=== PATIENT | male | born 1955 | race Caucasian/White ===

== ENCOUNTER 2021-01-23 16:45 | Observation (INO) | payer BC ==
[2021-01-23] MEDS ORDERED: Metoclopramide 10 MG/2 ML SDV IVPUSH ONE (17:03)
[2021-01-23] MEDS: Sodium Chloride 0.9% 10 ML Syringe FLUSH PRN ×2 (17:08→22:13)
[2021-01-23] MEDS ORDERED: Lactated Ringers 1,000 ML IV SCH (17:15)
[2021-01-23 17:22] LABS: CHLORIDE,CL 98 mmol/L (98-107); SODIUM,NA 133 mmol/L (136-145)
[2021-01-23] MEDS ORDERED: Iopamidol 612 MG/ML 100 ML Bottle IVPUSH STA (17:37)
[2021-01-23] MEDS ORDERED: Iopamidol 612 MG/ML 100 ML Bottle ONE (17:47)
[2021-01-23] MEDS ORDERED: Sodium Chloride 0.9% 1,000 ML IV ONE (18:23)
--- NOTE | 2021-01-23 19:10 | EDM.PDOC ---
ED HPI GENERAL MEDICAL PROBLEM - General Chief Complaint: Gastrointestinal Problem Stated Complaint: N&V Time Seen by Provider: 01/23/21 16:47 Source of Information: Reports: Patient History Limitations: Reports: No Limitations - History of Present Illness INITIAL COMMENTS - FREE TEXT/NARRATIVE: Pt. presents to ER with complaint of 2 day history of unable to hold down fluids. Pt. states that he had prostatectomy on 01/16. He still have a chery catheter in place. This is supposed to be removed tomorrow. Pt. states that he had a BM today and yesterday. He states that he was able to hold down fluids prior to yesterday. Pt. denies any abdominal pain. No fever or chills. Denies any groin pain. He denies any chest pain or shortness of breath. Pt. has not noticed any blood in his stools. He denies any flank or low back pain. Surgery was performed on 01/16/[address] Manzo at [facility]. 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) - Related Data Allergies Allergy/AdvReac Type Severity Reaction Status Date / Time No Known Allergies Allergy Verified 06/27/14 11:54 Home Meds: Home Meds amLODIPine [Norvasc] 10 mg PO DAILY 06/27/14 [History] Labetalol HCl [Labetalol] 400 mg PO BID 07/04/14 [History] Aspirin [Aspirin EC] 81 mg PO DAILY 01/23/21 [History] Bacitracin [Bacitracin Oint] 1 dose TOP BID PRN 01/23/21 [History] Enoxaparin Sodium [Lovenox] 40 mg SUBCUT DAILY 01/23/21 [History] Furosemide 40 mg PO DAILY 01/23/21 [History] Levothyroxine [Synthroid] 112 mcg PO DAILY 01/23/21 [History] Oxybutynin Chloride [Oxybutynin Chloride ER] 10 mg PO DAILY PRN 01/23/21 [History] Sennosides/Docusate Sodium [Senna-Docusate Sodium Tablet] 2 tab PO DAILY PRN 01/23/21 [History] Sildenafil Citrate [Viagra] 100 mg PO ASDIRECTED 01/23/21 [History] Simethicone [Gas-X Ultra Strength] 1 tab PO ONETIME 01/23/21 [History] atorvaSTATin Calcium [Atorvastatin Calcium] 20 mg PO BEDTIME 01/23/21 [History] calcitrioL [Calcitriol] 1 cap PO Q48H 01/23/21 [History] dimenhyDRINATE [Dramamine] 50 mg PO ONETIME 01/23/21 [History] oxyCODONE 5 mg PO Q6HR PRN 01/23/21 [History] Past Medical History HEENT History: Reports: Impaired Vision Cardiovascular History: Reports: High Cholesterol, Hypertension Endocrine/Metabolic History: Reports: Hypothyroidism Oncologic (Cancer) History: Reports: Prostate - Past Surgical History HEENT Surgical History: Reports: Oral Surgery Male Surgical History: Reports: Prostatectomy, Other (See Below) Other Male Surgeries/Procedures: Two lymph nodes removed with prostate Musculoskeletal Surgical History: Reports: Shoulder Surgery Other Musculoskeletal Surgeries/Procedures:: right shoulder surgery in pt late ' Social & Family History - Tobacco Use Tobacco Use Status *Q: Never Tobacco User - Caffeine Use Caffeine Use: Reports: None - Living Situation & Occupation Living situation: Reports: , with Family Occupation: Employed ED ROS GENERAL - Review of Systems Review Of Systems: See Below Constitutional: Reports: Decreased Appetite. Denies: Fever, Chills, Malaise, Weakness, Fatigue, Diaphoresis HEENT: Reports: No Symptoms Respiratory: Reports: No Symptoms Cardiovascular: Reports: No Symptoms Endocrine: Reports: No Symptoms GI/Abdominal: Reports: Abdominal Pain (diffuse cramping), Anorexia, Flatus, Nausea, Vomiting. Denies: Black Stool, Bloody Stool, Diarrhea, Distension, Hematemesis, Hematochezia, Melena : Reports: No Symptoms Musculoskeletal: Reports: No Symptoms Skin: Reports: No Symptoms Neurological: Reports: No Symptoms Psychiatric: Reports: No Symptoms Hematologic/Lymphatic: Reports: No Symptoms Immunologic: Reports: No Symptoms ED EXAM, GENERAL - Physical Exam Exam: See Below Exam Limited By: No Limitations General Appearance: Alert, WD/WN, No Apparent Distress Nose: Normal Inspection, Normal Mucosa Throat/Mouth: Normal Inspection, Normal Lips, Normal Teeth, Normal Gums, Normal Oropharynx, Normal Voice, No Airway Compromise, Other (oral mucosa is dry) Head: Atraumatic, Normocephalic Neck: Normal Inspection, Supple, Non-Tender, Full Range of Motion Respiratory/Chest: No Respiratory Distress, Lungs Clear, Normal Breath Sounds, No Accessory Muscle Use, Chest Non-Tender Cardiovascular: Normal Peripheral Pulses, Regular Rate, Rhythm, No Edema, No Gallop, No JVD, No Murmur Peripheral Pulses: 4+: Radial (L) GI/Abdominal: Soft, Non-Tender, No Organomegaly, No Distention, No Mass, Pelvis Stable (Male) Exam: Deferred Rectal (Males) Exam: Deferred Back Exam: Normal Inspection, Full Range of Motion Extremities: Normal Inspection, Normal Range of Motion, Non-Tender, No Pedal Edema, Normal Capillary Refill Neurological: Alert, Oriented, CN II-XII Intact, Normal Cognition, Normal Gait, Normal Reflexes, No Motor/Sensory Deficits Psychiatric: Normal Affect, Normal Mood Skin Exam: Warm, Dry, Intact, Normal Color, No Rash #1 Interpretation Rhythm: NSR [employer]: Normal P-Wave: Present QRS: Normal ST-T: Normal QT: Normal Course - Vital Signs Last Recorded V/S: Last Vital Signs Temp 36.9 C 01/23/21 16:47 Pulse 76 01/23/21 17:44 Resp 18 01/23/21 16:47 BP 125/72 01/23/21 17:44 Pulse Ox 97 01/23/21 16:47 - Orders/Labs/Meds Orders: Active Orders 24 hr Category Date Time Status Patient Status [ADT] Routine ADT 01/23/21 18:53 Active EKG Documentation Completion [RC] ASDIRECTED Care 01/23/21 17:21 Active Peripheral IV Care [RC] . DIRECTED Care 01/23/21 17:03 Active Abdomen Pelvis w Cont [CT] Stat Exams 01/23/21 17:29 Taken CULTURE BLOOD [BC] Stat Lab 01/23/21 17:00 Received CULTURE BLOOD [BC] Stat Lab 01/23/21 17:24 Received CULTURE URINE [RM] Stat Lab 01/23/21 17:02 Received Lactated Ringers [Ringers, Lactated] 1,000 ml Med 01/23/21 17:15 Active IV ASDIRECTED Sodium Chloride 0.9% [Saline Flush] Med 01/23/21 17:01 Active 10 ml FLUSH ASDIRECTED PRN Blood Culture x2 Reflex Set [OM.PC] Stat Oth 01/23/21 17:21 Ordered Peripheral IV Insertion Adult [OM.PC] Routine Oth 01/23/21 17:02 Ordered EKG 12 Lead [EK] Stat Ther 01/23/21 17:21 Ordered Medication Orders Lactated Ringer's (Ringers, Lactated) 1,000 mls @ 500 mls/hr IV ASDIRECTED KARTIK Last Admin: 01/23/21 17:09 Dose: 500 mls/hr Documented by: BEN Sodium Chloride (Sodium Chloride 0.9% 10 Ml Syringe) 10 ml FLUSH ASDIRECTED PRN PRN Reason: Keep Vein Open Last Admin: 01/23/21 17:08 Dose: 10 ml Documented by: BEN Labs: Laboratory Tests 01/23/21 01/23/21 01/23/21 Range/Units 17:00 17:00 17:00 WBC 18.5 H (4.0-10.2) K/uL RBC 4.59 (4.33-5.41) M/uL Hgb 13.7 D (13.1-16.8) g/dL Hct 39.5 (39.0-49.0) % MCV 86.1 (84.0-98.0) fL MCH 29.8 (28.2-33.3) pg MCHC 34.7 (31.7-36.0) g/dL RDW 13.4 (11.2-14.1) % Plt Count 236 (150-350) K/uL Neut % (Auto) 78.2 (45.0-80.0) % Lymph % (Auto) 10.2 (10.0-50.0) % [place] % (Auto) 9.0 (2.0-14.0) % Eos % (Auto) 2.2 (0.0-5.0) % Baso % (Auto) 0.4 (0.0-2.0) % Neut # (Auto) 14.47 H (1.40-7.00) K/uL Lymph # (Auto) 1.88 (0.50-3.50) K/uL [place] # (Auto) 1.66 H (0.00-1.00) K/uL Eos # (Auto) 0.41 (0.00-0.50) K/uL Baso # (Auto) 0.07 (0.00-0.20) K/uL Sodium 133 L D (136-145) mmol/L Potassium 3.9 (3.5-5.1) mmol/L Chloride 98 (98-107) mmol/L Carbon Dioxide 21.5 (21.0-32.0) mmol/L BUN 30 H (7-18) mg/dL Creatinine 1.86 H (0.51-1.17) mg/dL Est Cr Clr Drug Dosing TNP Estimated GFR (MDRD) 37 mL/min Glucose 127 H (70-99) mg/dL Lactic Acid (0.4-2.0) mmol/L Calcium 8.7 (8.5-10.1) mg/dL Magnesium 1.9 (1.8-2.4) mg/dL Total Bilirubin 0.9 (0.2-1.0) mg/dL AST 37 (15-37) U/L ALT 64 (12-78) U/L Alkaline Phosphatase 102 (46-116) IU/L Troponin I 0.000 (0.000-0.056) ng/mL C-Reactive Protein 0.6 (<=0.9) mg/dL Total Protein 7.6 (6.4-8.2) g/dL Albumin 3.9 (3.4-5.0) g/dL Amylase 36 (25-115) U/L Lipase 81 (73-393) U/L Specimen Type Urine Color Urine Appearance Urine pH (5.0-9.0) Ur Specific [place] (1.005-1.030) Urine Protein (NEGATIVE) mg/dL Urine Glucose (UA) (NEGATIVE) mg/dL Urine Ketones (NEGATIVE) mg/dL Urine Occult Blood (NEGATIVE) Urine Nitrite (NEGATIVE) Urine Bilirubin (NEGATIVE) Urine Urobilinogen (0.2-1.0) E.U./dL Ur Leukocyte Esterase (NEGATIVE) Urine RBC /HPF Urine WBC /HPF Ur Epithelial Cells /LPF Urine Bacteria (NONE TO FEW) /HPF 01/23/21 01/23/21 Range/Units 17:00 17:02 WBC (4.0-10.2) K/uL RBC (4.33-5.41) M/uL Hgb (13.1-16.8) g/dL Hct (39.0-49.0) % MCV (84.0-98.0) fL MCH (28.2-33.3) pg MCHC (31.7-36.0) g/dL RDW (11.2-14.1) % Plt Count (150-350) K/uL Neut % (Auto) (45.0-80.0) % Lymph % (Auto) (10.0-50.0) % [place] % (Auto) (2.0-14.0) % Eos % (Auto) (0.0-5.0) % Baso % (Auto) (0.0-2.0) % Neut # (Auto) (1.40-7.00) K/uL Lymph # (Auto) (0.50-3.50) K/uL [place] # (Auto) (0.00-1.00) K/uL Eos # (Auto) (0.00-0.50) K/uL Baso # (Auto) (0.00-0.20) K/uL Sodium (136-145) mmol/L Potassium (3.5-5.1) mmol/L Chloride (98-107) mmol/L Carbon Dioxide (21.0-32.0) mmol/L BUN (7-18) mg/dL Creatinine (0.51-1.17) mg/dL Est Cr Clr Drug Dosing Estimated GFR (MDRD) mL/min Glucose (70-99) mg/dL Lactic Acid 1.0 (0.4-2.0) mmol/L Calcium (8.5-10.1) mg/dL Magnesium (1.8-2.4) mg/dL Total Bilirubin (0.2-1.0) mg/dL AST (15-37) U/L ALT (12-78) U/L Alkaline Phosphatase (46-116) IU/L Troponin I (0.000-0.056) ng/mL C-Reactive Protein (<=0.9) mg/dL Total Protein (6.4-8.2) g/dL Albumin (3.4-5.0) g/dL Amylase (25-115) U/L Lipase (73-393) U/L Specimen Type Urincc Urine Color Brown Urine Appearance Cloudy Urine pH 5.5 (5.0-9.0) Ur Specific [place] 1.025 (1.005-1.030) Urine Protein 100 H (NEGATIVE) mg/dL Urine Glucose (UA) Negative (NEGATIVE) mg/dL Urine Ketones Negative (NEGATIVE) mg/dL Urine Occult Blood Large H (NEGATIVE) Urine Nitrite Negative (NEGATIVE) Urine Bilirubin Negative (NEGATIVE) Urine Urobilinogen 0.2 (0.2-1.0) E.U./dL Ur Leukocyte Esterase Trace H (NEGATIVE) Urine RBC 50-75 H /HPF Urine WBC 20-30 H /HPF Ur Epithelial Cells Few /LPF Urine Bacteria Moderate H (NONE TO FEW) /HPF Meds: Medications Generic Name Dose Route Start Last Admin Trade Name Freq PRN Reason Stop Dose Admin Lactated Ringer's 1,000 mls @ 500 mls/hr 01/23/21 17:15 01/23/21 17:09 Ringers, Lactated IV 500 mls/hr ASDIRECTED KARTIK Administration Sodium Chloride 10 ml 01/23/21 17:01 01/23/21 17:08 Sodium Chloride 0.9% 10 Ml Syringe FLUSH 10 ml ASDIRECTED PRN Administration Keep Vein Open Discontinued Medications Generic Name Dose Route Start Last Admin Trade Name Freq PRN Reason Stop Dose Admin Sodium Chloride 1,000 mls @ 1,000 mls/hr 01/23/21 18:23 Normal Saline IV 01/23/21 19:22 .BOLUS ONE Iopamidol 100 ml 01/23/21 17:37 01/23/21 18:12 Iopamidol 612 Mg/Ml 100 Ml Bottle IVPUSH 01/23/21 17:38 100 ml ONETIME STA Administration Iopamidol Confirm 01/23/21 17:47 Iopamidol 612 Mg/Ml 100 Ml Bottle Administered 01/23/21 17:48 Dose 100 ml .ROUTE .STK-MED ONE Metoclopramide HCl 10 mg 01/23/21 17:03 01/23/21 17:08 Metoclopramide 10 Mg/2 Ml Sdv IVPUSH 01/23/21 17:04 10 mg ONETIME ONE Administration - Radiology Interpretation Free Text/Narrative:: CT abdomen and pelvis were obtained. Findings consistent with SBO. Soft tissue stranding adjacent to iliac and femoral artery calcifications bilaterally, likely secondary to thrombophlebitis. Pt. denies any discomfort on palpation of this area. No obvious free air, bowel rupture, or abscess. No diverticulitis or appendicitis. - Re-Assessments/Exams Free Text/Narrative Re-Assessment/Exam: 01/23/21 19:13 IV access established. Pt. was started on IV normal saline and was given reglan 10mg IV. After approx. 1 liter of crystalloid, pt. reported feeling somewhat better. CT abdomen and pelvis were obtained with contrast. Departure - Departure Time of Disposition: 19:39 Disposition: Refer to Observation Clinical Impression: Small bowel obstruction - Discharge Information Referrals: Bianca Pham, [employer]ER [Primary Care Provider] - Forms: ED Department Discharge Sepsis Event Note (ED) - Evaluation Sepsis Screening Result: No Definite Risk - Focused Exam Vital Signs: Vital Signs Temp Pulse Resp BP Pulse Ox 01/23/21 17:44 76 125/72 01/23/21 17:14 74 155/90 H 01/23/21 16:47 36.9 C 81 18 168/92 H 97 - Problem List Review Problem List Initiated/Reviewed/Updated: Yes - My Orders Last 24 Hours: My Active Orders 01/23/21 17:00 CULTURE BLOOD [BC] Stat 01/23/21 17:01 Sodium Chloride 0.9% [Saline Flush] 10 ml FLUSH ASDIRECTED PRN 01/23/21 17:02 CULTURE URINE [RM] Stat Peripheral IV Insertion Adult [OM.PC] Routine 01/23/21 17:03 Peripheral IV Care [RC] . DIRECTED 01/23/21 17:15 Lactated Ringers [Ringers, Lactated] 1,000 ml IV ASDIRECTED 01/23/21 17:21 EKG Documentation Completion [RC] ASDIRECTED Blood Culture x2 Reflex Set [OM.PC] Stat EKG 12 Lead [EK] Stat 01/23/21 17:24 CULTURE BLOOD [BC] Stat 01/23/21 17:29 Abdomen Pelvis w Cont [CT] Stat 01/23/21 18:53 Patient Status [ADT] Routine - Assessment/Plan Admission H&P: Please use this note as an admission H&P Last 24 Hours: My Active Orders 01/23/21 17:00 CULTURE BLOOD [BC] Stat 01/23/21 17:01 Sodium Chloride 0.9% [Saline Flush] 10 ml FLUSH ASDIRECTED PRN 01/23/21 17:02 CULTURE URINE [RM] Stat Peripheral IV Insertion Adult [OM.PC] Routine 01/23/21 17:03 Peripheral IV Care [RC] . DIRECTED 01/23/21 17:15 Lactated Ringers [Ringers, Lactated] 1,000 ml IV ASDIRECTED 01/23/21 17:21 EKG Documentation Completion [RC] ASDIRECTED Blood Culture x2 Reflex Set [OM.PC] Stat EKG 12 Lead [EK] Stat 01/23/21 17:24 CULTURE BLOOD [BC] Stat 01/23/21 17:29 Abdomen Pelvis w Cont [CT] Stat 01/23/21 18:53 Patient Status [ADT] Routine Plan: Discussed findings with Dr. Manzo. Advised admission, bowel rest, fluids, and reevaluation to see if he is improving. NPO for tonight. He is scheduled to follow-up in clinic tomorrow. He is anxious to have this appointment. If he is able to hold down fluids in the AM he will be discharged. Will trend his white count. Pt. is a code 1. Continue IV lactated ringers at 250ml/hr. IV reglan and zofran as needed for nausea.
[2021-01-23] MEDS ORDERED: Oxybutynin 5 MG Tab.ER PO PRN (20:48)
[2021-01-23] MEDS ORDERED: Bacitracin Oint 1 GM U/D Packet TOP PRN (20:48)
[2021-01-23] MEDS ORDERED: Calcitriol 0.25 MCG Cap PO SCH (21:00)
[2021-01-23] MEDS ORDERED: Non-Formulary Medication 1 Each (Dimenhydrinate [Dramamine] 50 MG Tablet) PO SCH (21:00)
[2021-01-23] MEDS: Lactated Ringers 1,000 ML IV SCH (21:31)
[2021-01-23] MEDS: Sulfamethoxazole/Trimethoprim 800-160 MG Tab PO SCH (21:54)
[2021-01-23] MEDS ORDERED: Famotidine 20 MG/2 ML SDV IVPUSH ONE (21:58)
[2021-01-23] MEDS: Pantoprazole 40 MG Vial IVPUSH SCH (22:12)
[2021-01-24] MEDS: Lactated Ringers 1,000 ML IV SCH ×2 (01:37→05:42)
[2021-01-24] MEDS ORDERED: Levothyroxine 112 MCG Tab PO SCH (07:30)
[2021-01-24] MEDS ORDERED: Labetalol 100 MG Tab PO SCH (08:00)
[2021-01-24] MEDS ORDERED: amLODIPine 5 MG Tab PO SCH (08:00)
[2021-01-24] MEDS ORDERED: Aspirin 81 MG Tab.EC PO SCH (08:00)
[2021-01-24] MEDS ORDERED: Furosemide 40 MG Tab PO SCH (08:00)
[2021-01-24] MEDS ORDERED: Enoxaparin 40 MG/0.4 ML Syringe SUBCUT SCH (08:00)
[2021-01-24] MEDS: Sulfamethoxazole/Trimethoprim 800-160 MG Tab PO SCH (08:05)
[2021-01-24] MEDS: Pantoprazole 40 MG Vial IVPUSH SCH (09:59)
[2021-01-24] MEDS: Sodium Chloride 0.9% 10 ML Syringe FLUSH PRN (09:59)
--- NOTE | 2021-01-24 14:43 | PCM.DCSUM1 ---
Discharge Summary - Hospital Course HPI Initial Comments: Patient was admitted into the hospital with small bowel obstruction status post robotic prostatectomy. Diagnosis: Stroke: No - Discharge Data Discharge Date: 01/24/21 Discharge Disposition: Home, Self-Care 01 Condition: Good - Referral to Home Health Primary Care Physician: Bianca Pham NP - Discharge Diagnosis/Problem(s) (1) Prostate cancer SNOMED Code(s): 837241705 ICD Code: C61 - MALIGNANT NEOPLASM OF PROSTATE Status: Acute Problem Details: SP robotic prostatectomy on 01/16/21. Chery removed today voiding well. Surgical sites healing well. Continue plans from urology. (2) HTN, Benign hypertension SNOMED Code(s): 49537495 ICD Code: I10 - ESSENTIAL (PRIMARY) HYPERTENSION Status: Acute Priority: High Problem Details: BP well controlled during stay. Continue home medications. (3) Hyperlipidemia SNOMED Code(s): 26862859 ICD Code: E78.5 - HYPERLIPIDEMIA, UNSPECIFIED Status: Acute Priority: Medium Problem Details: Note recently initiated Lipitor therapy with lipid profile also benefiting from low dose L. thyroxine therapy (4) Renal impairment SNOMED Code(s): 846150544 ICD Code: N28.9 - DISORDER OF KIDNEY AND URETER, UNSPECIFIED Status: Acute Priority: High Onset Date: 06/27/14 Problem Details: Kidney function at baseline at 1.4 actually better than every documented here. Down from 1.8 when admitted. Continue hydration at home. (5) Small bowel obstruction SNOMED Code(s): 371952232 ICD Code: K56.609 - UNSP INTESTNL OBST, UNSP TO PARTIAL VERSUS COMPLETE OBST Status: Acute Problem Details: Resolving. Eating drinking. No symptoms multiple bowel movements. No pain. Passing gas and no heartburn gas sensation. DC now. Easy diet. - Patient Summary/Data Hospital Course: Patient was admitted in the hospital for observation overnight due to small bowel obstruction status post robotic prostatectomy done at [facility] on 01-16-21. He was initially started on n.p.o. status fluid hydration as well as Reglan. He does have some chronic kidney injury and his creatinine after the fluid hydration had returned back to baseline actually better than what it been documented previously here at 1.4. He was afebrile throughout his stay. Overnight his symptoms resolved. In the morning he was able to eat and drink without nausea vomiting or abdominal pain. He had multiple bowel movements as well in the hospital. In consultation with his urologist the Chery catheter was removed. He had appropriate pre and post voids residuals. He has absolutely no pain. He feels back to normal. His leukocytosis has completely resolved. His laboratory evaluation is rather unremarkable. Leukocytosis is most likely due to the small bowel obstruction and stress of the recent surgery no signs of infection or sepsis at this time. He is not requiring anything for pain. He will follow-up with his urologist early next week to get the results of his pathology. Any problems with voiding he should either contact his urologist or return to the clinic. Continue ambulation and hydration at home. - Patient Instructions Diet: GI Soft/Low Residue/Low Fiber Other/Special Instructions: Home today. Make sure and drink plenty of fluids on the regular basis. Continue your medications as previously. Make sure and ambulate and keep moving to help with bowels. Diet take it easy. Nothing rich fatty spicy or dairy until completely symptom free. Follow up with your surgeon on previous. Recheck PCP in a week to ensure continued improvement. - Discharge Plan *PRESCRIPTION DRUG MONITORING PROGRAM REVIEWED*: Not Applicable *COPY OF PRESCRIPTION DRUG MONITORING REPORT IN PATIENT JENA: Not Applicable Home Medications: Home Meds amLODIPine [Norvasc] 10 mg PO DAILY 06/27/14 [History] Labetalol HCl [Labetalol] 400 mg PO BID 07/04/14 [History] Aspirin [Aspirin EC] 81 mg PO DAILY 01/23/21 [History] Bacitracin [Bacitracin Oint] 1 dose TOP BID PRN 01/23/21 [History] Enoxaparin Sodium [Lovenox] 40 mg SUBCUT DAILY 01/23/21 [History] Furosemide 40 mg PO DAILY 01/23/21 [History] Levothyroxine [Synthroid] 112 mcg PO DAILY 01/23/21 [History] Oxybutynin Chloride [Oxybutynin Chloride ER] 10 mg PO DAILY PRN 01/23/21 [History] Sennosides/Docusate Sodium [Senna-Docusate Sodium Tablet] 2 tab PO DAILY PRN 01/23/21 [History] Sildenafil Citrate [Viagra] 100 mg PO ASDIRECTED 01/23/21 [History] Simethicone [Gas-X Ultra Strength] 1 tab PO ONETIME 01/23/21 [History] atorvaSTATin Calcium [Atorvastatin Calcium] 20 mg PO BEDTIME 01/23/21 [History] calcitrioL [Calcitriol] 1 cap PO Q48H 01/23/21 [History] dimenhyDRINATE [Dramamine] 50 mg PO ONETIME 01/23/21 [History] oxyCODONE 5 mg PO Q6HR PRN 01/23/21 [History] Sulfamethoxazole/Trimethoprim [Septra DS] 1 tab PO BID tablet 01/24/21 [Rx] Forms: ED Department Discharge Referrals: Bianca Pham NP [Primary Care Provider] - - Discharge Summary/Plan Comment DC Time >30 min.: Yes - General Info Date of Service: 01/24/21 Admission Dx/Problem (Free Text: SBO sp prostatectomy 01/16/21 Subjective Update: Patient relates that he is back to normal this morning. About 2 AM he started noticing the gas pressure that he was having or fullness in his abdomen and dyspepsia had resolved. He has no abdominal pain. He has had 2 bowel movements this morning. He is in absolutely no pain and he feels back to baseline. He was supposed to have a follow-up appointment with his urologist this morning although due to him being in the hospital he was unable to follow-up with them. Direction from the urologist was given to pull his Chery catheter today. We did start feeding the patient this morning starting with liquid and very simple diet he is tolerating this well. Multiple hours later he was still without any pain nausea or vomiting. He is tolerating well oral fluids. He is ambulating around the department. He has voided multiple times following the Chery catheter removal. He has had a appropriate pre and post void residuals by bladder ultrasound. Functional Status: Reports: Pain Controlled, Ambulating - Review of Systems General: Reports: No Symptoms HEENT: Reports: No Symptoms Pulmonary: Reports: No Symptoms Cardiovascular: Reports: No Symptoms Gastrointestinal: Reports: No Symptoms Genitourinary: Reports: No Symptoms (chery in place. ) Musculoskeletal: Reports: No Symptoms Skin: Reports: No Symptoms Neurological: Reports: No Symptoms Psychiatric: Reports: No Symptoms - Patient Data Vitals - Most Recent: Last Vital Signs Temp 97 F 01/24/21 12:00 Pulse 126 H 01/24/21 12:00 Resp 20 01/24/21 12:00 BP 126/76 01/24/21 12:00 Pulse Ox 96 01/24/21 12:00 Weight - Most Recent: 229 lb 11.2 oz I&O - Last 24 hours: Intake & Output 01/23/21 01/24/21 01/24/21 22:59 06:59 14:59 Intake Total 1967 120 Output Total 425 1700 900 Balance -425 380 -301 Lab Results - Last 24 hrs: Laboratory Results - last 24 hr 01/23/21 01/23/21 01/23/21 Range/Units 17:00 17:00 17:00 WBC 18.5 H (4.0-10.2) K/uL RBC 4.59 (4.33-5.41) M/uL Hgb 13.7 D (13.1-16.8) g/dL Hct 39.5 (39.0-49.0) % MCV 86.1 (84.0-98.0) fL MCH 29.8 (28.2-33.3) pg MCHC 34.7 (31.7-36.0) g/dL RDW 13.4 (11.2-14.1) % Plt Count 236 (150-350) K/uL Neut % (Auto) 78.2 (45.0-80.0) % Lymph % (Auto) 10.2 (10.0-50.0) % [place] % (Auto) 9.0 (2.0-14.0) % Eos % (Auto) 2.2 (0.0-5.0) % Baso % (Auto) 0.4 (0.0-2.0) % Neut # (Auto) 14.47 H (1.40-7.00) K/uL Lymph # (Auto) 1.88 (0.50-3.50) K/uL [place] # (Auto) 1.66 H (0.00-1.00) K/uL Eos # (Auto) 0.41 (0.00-0.50) K/uL Baso # (Auto) 0.07 (0.00-0.20) K/uL Sodium 133 L D (136-145) mmol/L Potassium 3.9 (3.5-5.1) mmol/L Chloride 98 (98-107) mmol/L Carbon Dioxide 21.5 (21.0-32.0) mmol/L BUN 30 H (7-18) mg/dL Creatinine 1.86 H (0.51-1.17) mg/dL Est Cr Clr Drug Dosing TNP Estimated GFR (MDRD) 37 mL/min Glucose 127 H (70-99) mg/dL Lactic Acid (0.4-2.0) mmol/L Calcium 8.7 (8.5-10.1) mg/dL Magnesium 1.9 (1.8-2.4) mg/dL Total Bilirubin 0.9 (0.2-1.0) mg/dL AST 37 (15-37) U/L ALT 64 (12-78) U/L Alkaline Phosphatase 102 (46-116) IU/L Troponin I 0.000 (0.000-0.056) ng/mL C-Reactive Protein 0.6 (<=0.9) mg/dL Total Protein 7.6 (6.4-8.2) g/dL Albumin 3.9 (3.4-5.0) g/dL Amylase 36 (25-115) U/L Lipase 81 (73-393) U/L Specimen Type Urine Color Urine Appearance Urine pH (5.0-9.0) Ur Specific [place] (1.005-1.030) Urine Protein (NEGATIVE) mg/dL Urine Glucose (UA) (NEGATIVE) mg/dL Urine Ketones (NEGATIVE) mg/dL Urine Occult Blood (NEGATIVE) Urine Nitrite (NEGATIVE) Urine Bilirubin (NEGATIVE) Urine Urobilinogen (0.2-1.0) E.U./dL Ur Leukocyte Esterase (NEGATIVE) Urine RBC /HPF Urine WBC /HPF Ur Epithelial Cells /LPF Urine Bacteria (NONE TO FEW) /HPF 01/23/21 01/23/21 01/24/21 Range/Units 17:00 17:02 08:34 WBC 12.0 H (4.0-10.2) K/uL RBC 4.24 L (4.33-5.41) M/uL Hgb 12.7 L (13.1-16.8) g/dL Hct 36.6 L (39.0-49.0) % MCV 86.3 (84.0-98.0) fL MCH 30.0 (28.2-33.3) pg MCHC 34.7 (31.7-36.0) g/dL RDW 13.3 (11.2-14.1) % Plt Count 205 (150-350) K/uL Neut % (Auto) 66.1 (45.0-80.0) % Lymph % (Auto) 17.1 (10.0-50.0) % [place] % (Auto) 12.6 (2.0-14.0) % Eos % (Auto) 3.5 (0.0-5.0) % Baso % (Auto) 0.7 (0.0-2.0) % Neut # (Auto) 7.90 H (1.40-7.00) K/uL Lymph # (Auto) 2.04 (0.50-3.50) K/uL [place] # (Auto) 1.51 H (0.00-1.00) K/uL Eos # (Auto) 0.42 (0.00-0.50) K/uL Baso # (Auto) 0.08 (0.00-0.20) K/uL Sodium (136-145) mmol/L Potassium (3.5-5.1) mmol/L Chloride (98-107) mmol/L Carbon Dioxide (21.0-32.0) mmol/L BUN (7-18) mg/dL Creatinine (0.51-1.17) mg/dL Est Cr Clr Drug Dosing Estimated GFR (MDRD) mL/min Glucose (70-99) mg/dL Lactic Acid 1.0 (0.4-2.0) mmol/L Calcium (8.5-10.1) mg/dL Magnesium (1.8-2.4) mg/dL Total Bilirubin (0.2-1.0) mg/dL AST (15-37) U/L ALT (12-78) U/L Alkaline Phosphatase (46-116) IU/L Troponin I (0.000-0.056) ng/mL C-Reactive Protein (<=0.9) mg/dL Total Protein (6.4-8.2) g/dL Albumin (3.4-5.0) g/dL Amylase (25-115) U/L Lipase (73-393) U/L Specimen Type Urincc Urine Color Brown Urine Appearance Cloudy Urine pH 5.5 (5.0-9.0) Ur Specific [place] 1.025 (1.005-1.030) Urine Protein 100 H (NEGATIVE) mg/dL Urine Glucose (UA) Negative (NEGATIVE) mg/dL Urine Ketones Negative (NEGATIVE) mg/dL Urine Occult Blood Large H (NEGATIVE) Urine Nitrite Negative (NEGATIVE) Urine Bilirubin Negative (NEGATIVE) Urine Urobilinogen 0.2 (0.2-1.0) E.U./dL Ur Leukocyte Esterase Trace H (NEGATIVE) Urine RBC 50-75 H /HPF Urine WBC 20-30 H /HPF Ur Epithelial Cells Few /LPF Urine Bacteria Moderate H (NONE TO FEW) /HPF 01/24/21 01/24/21 Range/Units 08:34 08:34 WBC (4.0-10.2) K/uL RBC (4.33-5.41) M/uL Hgb (13.1-16.8) g/dL Hct (39.0-49.0) % MCV (84.0-98.0) fL MCH (28.2-33.3) pg MCHC (31.7-36.0) g/dL RDW (11.2-14.1) % Plt Count (150-350) K/uL Neut % (Auto) (45.0-80.0) % Lymph % (Auto) (10.0-50.0) % [place] % (Auto) (2.0-14.0) % Eos % (Auto) (0.0-5.0) % Baso % (Auto) (0.0-2.0) % Neut # (Auto) (1.40-7.00) K/uL Lymph # (Auto) (0.50-3.50) K/uL [place] # (Auto) (0.00-1.00) K/uL Eos # (Auto) (0.00-0.50) K/uL Baso # (Auto) (0.00-0.20) K/uL Sodium 137 (136-145) mmol/L Potassium 3.7 (3.5-5.1) mmol/L Chloride 105 (98-107) mmol/L Carbon Dioxide 21.9 (21.0-32.0) mmol/L BUN 24 H (7-18) mg/dL Creatinine 1.48 H (0.51-1.17) mg/dL Est Cr Clr Drug Dosing 46.10 Estimated GFR (MDRD) 48 mL/min Glucose 96 (70-99) mg/dL Lactic Acid 1.3 (0.4-2.0) mmol/L Calcium 8.1 L (8.5-10.1) mg/dL Magnesium (1.8-2.4) mg/dL Total Bilirubin 0.8 (0.2-1.0) mg/dL AST 33 (15-37) U/L ALT 54 (12-78) U/L Alkaline Phosphatase 88 (46-116) IU/L Troponin I (0.000-0.056) ng/mL C-Reactive Protein 0.7 (<=0.9) mg/dL Total Protein 6.4 (6.4-8.2) g/dL Albumin 3.1 L (3.4-5.0) g/dL Amylase (25-115) U/L Lipase (73-393) U/L Specimen Type Urine Color Urine Appearance Urine pH (5.0-9.0) Ur Specific [place] (1.005-1.030) Urine Protein (NEGATIVE) mg/dL Urine Glucose (UA) (NEGATIVE) mg/dL Urine Ketones (NEGATIVE) mg/dL Urine Occult Blood (NEGATIVE) Urine Nitrite (NEGATIVE) Urine Bilirubin (NEGATIVE) Urine Urobilinogen (0.2-1.0) E.U./dL Ur Leukocyte Esterase (NEGATIVE) Urine RBC /HPF Urine WBC /HPF Ur Epithelial Cells /LPF Urine Bacteria (NONE TO FEW) /HPF Med Orders - Current: Current Medications Amlodipine Besylate (Amlodipine 5 Mg Tab) 10 mg PO DAILY [facility] Last Admin: 01/24/21 08:05 Dose: 10 mg Documented by: Aspirin (Aspirin 81 Mg Tab.Ec) 81 mg PO DAILY [facility] Last Admin: 01/24/21 08:05 Dose: 81 mg Documented by: Atorvastatin Calcium (Atorvastatin 10 Mg Tab) 20 mg PO BEDTIME [facility] Bacitracin (Bacitracin Oint 1 Gm U/D Packet) 0 dose TOP BID PRN PRN Reason: cath discomfort Calcitriol (Calcitriol 0.25 Mcg Cap) mcg PO Q48H [facility] Enoxaparin Sodium (Enoxaparin 40 Mg/0.4 Ml Syringe) 40 mg SUBCUT DAILY [facility] Last Admin: 01/24/21 08:06 Dose: 40 mg Documented by: Furosemide (Furosemide 40 Mg Tab) 40 mg PO DAILY [facility] Last Admin: 01/24/21 08:05 Dose: 40 mg Documented by: Lactated Ringer's (Ringers, Lactated) 1,000 mls @ 250 mls/hr IV ASDIRECTED [facility] Last Admin: 01/24/21 05:42 Dose: 250 mls/hr Documented by: Labetalol HCl (Labetalol 100 Mg Tab) 400 mg PO BID [facility] Last Admin: 01/24/21 08:05 Dose: 400 mg Documented by: Levothyroxine Sodium (Levothyroxine 112 Mcg Tab) 112 mcg PO ACBREAKFAST [facility] Last Admin: 01/24/21 08:05 Dose: 112 mcg Documented by: Non-Formulary Medication (Dimenhydrinate [Dramamine]) 50 mg PO ONETIME [facility] Oxybutynin Chloride (Oxybutynin 5 Mg Tab.Er) 10 mg PO DAILY PRN PRN Reason: bladder spasms Pantoprazole Sodium (Pantoprazole 40 Mg Vial) 40 mg IVPUSH Q12H [facility] Last Admin: 01/24/21 09:59 Dose: 40 mg Documented by: Senna/Docusate Sodium (Docusate Sodium/Sennosides 50-8.6 Mg Tab) 2 tab PO DAILY PRN PRN Reason: Constipation Sodium Chloride (Sodium Chloride 0.9% 10 Ml Syringe) 10 ml FLUSH ASDIRECTED PRN PRN Reason: Keep Vein Open Last Admin: 01/24/21 09:59 Dose: 10 ml Documented by: Trimethoprim/Sulfamethoxazole (Sulfamethoxazole/Trimethoprim 800-160 Mg Tab) 1 tab PO BID [facility] Stop: 01/25/21 21:01 Last Admin: 01/24/21 08:05 Dose: 1 tab Documented by: Discontinued Medications Famotidine (Famotidine 20 Mg/2 Ml Sdv) 20 mg IVPUSH ONETIME ONE Stop: 01/23/21 21:59 Last Admin: 01/23/21 22:13 Dose: 20 mg Documented by: Lactated Ringer's (Ringers, Lactated) 1,000 mls @ 500 mls/hr IV ASDIRECTED [facility] Last Admin: 01/23/21 17:09 Dose: 500 mls/hr Documented by: Sodium Chloride (Normal Saline) 1,000 mls @ 1,000 mls/hr IV .BOLUS ONE Stop: 01/23/21 19:22 Last Admin: 01/23/21 21:50 Dose: Not Given Documented by: Iopamidol (Iopamidol 612 Mg/Ml 100 Ml Bottle) 100 ml IVPUSH ONETIME STA Stop: 01/23/21 17:38 Last Admin: 01/23/21 18:12 Dose: 100 ml Documented by: Iopamidol (Iopamidol 612 Mg/Ml 100 Ml Bottle) Confirm Administered Dose 100 ml .ROUTE .STK-MED ONE Stop: 01/23/21 17:48 Metoclopramide HCl (Metoclopramide 10 Mg/2 Ml Sdv) 10 mg IVPUSH ONETIME ONE Stop: 01/23/21 17:04 Last Admin: 01/23/21 17:08 Dose: 10 mg Documented by: - Exam General: Reports: Alert, Oriented HEENT: Reports: Pupils Equal, Pupils Reactive, EOMI Neck: Reports: Supple Lungs: Reports: Clear to Auscultation, Normal Respiratory Effort Cardiovascular: Reports: Regular Rate, Regular Rhythm GI/Abdominal Exam: Normal Bowel Sounds, Soft, Non-Tender, No Distention, Other (The surgical sites are well-healed. There is no tenderness there is no drainage erythema. There is a small hematoma under the lateral umbilicus larger incision that is unchanged from yesterday. His abdomen otherwise is benign.) (Male) Exam: Other (Chery catheter in place) Rectal (Males) Exam: Deferred Back Exam: Reports: Normal Inspection Extremities: Normal Inspection, Normal Range of Motion, No Pedal Edema, Normal Capillary Refill Skin: Reports: Warm, Dry, Intact Psy/Mental Status: Reports: Alert, Normal Affect, Normal Mood
[2021-01-24] MEDS ORDERED: atorvaSTATin 10 MG Tab PO SCH (20:00)
== END 2021-01-24 15:54 | disposition home or self-care (01) ==
LOC: LL.ED 16:45 → LL.MS 18:43
PROVIDERS: ADMIT Physician Assistant; ATTEND Physician Assistant
DX: K56.609 Unspecified intestinal obstruction, unspecified as to partial versus complete obstruction (principal); C61 Malignant neoplasm of prostate; I10 Essential (primary) hypertension; E78.5 Hyperlipidemia, unspecified; N28.9 Disorder of kidney and ureter, unspecified; Z90.89 Acquired absence of other organs; Z79.899 Other long term (current) drug therapy
CPT/HCPCS: 36415; 74177; 80053; 81001; 82150; 83605; 83690; 83735; 84484; 85025; 86140; 87040; 87086; 93005; 96374; 96375; 99285-25; A9270-GY; C9113; J1650; J2765; J3490; J7120; Q9967